=== PATIENT | male | born 1990 | race Two or more races ===

== ENCOUNTER 2024-03-09 08:48 | Emergency (ER) | payer OTHER ==
[~2024-03-09] VITALS: Ht 190.5 cm; Wt 86.5 kg
[2024-03-09] MEDS: IBUPROFEN 600 MG TAB PO ONE (10:51)
[2024-03-09 11:00] VITALS: BP 140/85; PULSE 102; RESP 18; O2SAT 96
[2024-03-09 11:53] LABS: Urine Bacteria None Seen /hpf (None Seen)
[2024-03-09 12:00] VITALS: TEMP 98
[2024-03-09 12:20] LABS: Urine Blood Negative /uL (Negative); Urine Clarity Clear (Clear); Urine Color Yellow (Yellow); Urine Mucus FEW (None Seen); Urine Protein, UAD Negative (Negative); Urine Specific Gravity 1.017 (1.001-1.035); Urine Urobilinogen Normal (Negative); Urine WBC 1 /hpf (0 - 3); Urine pH 5.5 (5.0-9.0)
[2024-03-09 12:50] LABS: COVID19 ANTIGEN SOFIA FIA POSITIVE (NEGATIVE)
[2024-03-09 12:51] LABS: Rapid Influenza A Negative (Negative); Rapid Influenza B Negative (Negative)
[2024-03-09] MEDS ORDERED: IBUP-1454 PO (12:52)
== END 2024-03-09 14:09 | disposition home or self-care (01) ==
LOC: ER 08:48
DX: U07.1 COVID-19 (principal)
CPT/HCPCS: 36415; 81001; 87426; 87804

== ENCOUNTER 2025-01-02 12:42 | Emergency (ER) | payer MEDICAID, OTHER ==
[~2025-01-02] VITALS: Ht 190.5 cm; Wt 105.5 kg
[~2025-01-02 12:42] MED LIST: IBUP-1454 PO
--- NOTE | 2025-01-02 13:08 | ED.PDOC ---
Eye-HPI HPI Comments 34 y.o male presents to the ED for a chief complaint of a sore throat x 3 days associated with throat swelling x 1 day. Patient reports difficulty swallowing due to the pain, states he has been taking Ibuprofen but has no relief and now noticed swelling is worse. Patient denies any SOB, discharge, fever, chills, or drooling. No medical history or allergies reported. Time Seen by MD: 12:55 Primary Care Provider: None Reviewed Notes: Nurses Notes, Medications, Allergies Allergies: Coded Allergies: NO KNOWN ALLERGIES (Unverified , 03/09/24) Home Meds Active Scripts Cephalexin (KEFLEX CAPSULE) 250 Mg Cp, 1 CAP PO QID, #28 CAP Prov:BRIAN FOREMAN MD 01/02/25 Ibuprofen (Ibuprofen) 600 Mg Tab, 1 TAB PO TID for 10 Days, #30 TAB 0 Refills Prov:BLACK VASQUEZ NP 03/09/24 Information Source: Patient Mode of Arrival: Ambulatory Timing: Days (3) Duration: Since onset Mouth: Tender, Swelling History of: None Associated signs and symptoms: Sore Throat Past Medical History PAST MEDICAL HISTORY: Denies Surgical History: Denies all surgeries Family History Family History: Reviewed,noncontributory to illness Social History Smoker: Non-Smoker Alcohol: Occasionally Drugs: Denies Drug Use Lives In: Home Constitutional: denies: chills, diaphoresis, fatigue, fever, malaise, sweats, weakness, others EENTM: reports: throat pain, throat swelling; denies: blurred vision, double vision, ear bleeding, ear discharge, ear drainage, ear pain, ear ringing, eye pain, eye redness, hearing loss, mouth pain, mouth swelling, nasal discharge, nose bleeding, nose congestion, nose pain, photophobia, tearing, voice changes, others Respiratory: denies: cough, hemoptysis, orthopnea, SOB at rest, shortness of breath, SOB with excertion, stridor, wheezing, others Cardiovascular: denies: chest pain, dizzy spells, diaphoresis, Dyspnea on exertion, edema, irregular heart beat, left arm pain, lightheadedness, palpitations, PND, syncope, others Gastrointestinal: denies: abdomen distended, abdominal pain, blood streaked bowels, constipated, diarrhea, dysphagia, difficulty swallowing, hematemesis, melena, nausea, poor appetite, poor fluid intake, rectal bleeding, rectal pain, vomiting, others Genitourinary: denies: burning, dysuria, flank pain, frequency, hematuria, incontinence, penile discharge, penile sore, pain, testicle pain, testicle swelling, urgency, others Neurological: denies: dizziness, fainting, headache, left sided numbness, left sided weakness, numbness, paresthesia, pre-existing deficit, right sided numbness, right sided weakness, seizure, speech problems, tingling, tremors, weakness, others Musculoskeletal: denies: back pain, gout, joint pain, joint swelling, muscle pain, muscle stiffness, neck pain, others Integumetry: denies: bruises, change in color, change in hair/nails, dryness, laceration, lesions, lumps, rash, wounds, others Allergic/Immunocompromised: denies: Difficulty Healing, Frequent Infections, Hives, Itching, others Hematologic/Lymphatic: denies: anemia, blood clots, easy bleeding, easy bruising, swollen glands, others Endocrine: denies: excessive hunger, excessive sweating, excessive thirst, excessive urination, flushing, intolerance to cold, intolerance to heat, unexplained weight gain, unexplained weight loss, others Psychiatric: denies: anxiety, bipolar disorder, depression, hopeless, panic disorder, schizophrenia, sleepless, suicidal, others All Other Systems: Reviewed and Negative Physical Exam General Appearance: Mild Distress HEENT: Pharyngeal Erythema, TMs Normal Neck: Full Range of Motion, Non-Tender, Normal, Normal Inspection Respiratory: Chest Non-Tender, Lungs Clear, No Accessory Muscle Use, No Respiratory Distress, Normal Breath Sounds Cardiovascular: No Edema, No JVD, No Murmur, No Gallop, Normal Peripheral Pulses, Regular Rate/Rhythm Breast Exam: Deferred Gastrointestinal: No Organomegaly, Non Tender, No Pulsatile Mass, Normal Bowel Sounds, Soft Genitalia: Deferred Pelvic: Deferred Rectal: Deferred Extremities: No calf tenderness, Normal capillary refill, Normal inspection, Normal range of motion, Non-tender, No pedal edema Musculoskeletal : Apperance: Normal Neurologic: Alert, core winder II-XII nml as Tested, No Motor Deficits, Normal Affect, Normal Mood, No Sensory Deficits Cerebellar Function: Normal Reflexes: Normal Skin: Dry, Normal Color, Warm Lymphatic: No Adenopathy Was a procedure done? Was a procedure done?: No EENT DIFF Eye: N/A Sore Throat: Christian's Angina, Peritonsillar Abscess, Peritonsillar Cellulitis, Streptococcal, Viral Pharyngitis X-Ray, Labs, Meds, VS Vital Signs Date Time Temp Pulse Resp B/P (MAP) Pulse Ox O2 Delivery O2 Flow Rate FiO2 01/02/25 14:15 100.5 98 16 143/85 (104) 98 100.5 01/02/25 14:15 98 16 98 Room Air 01/02/25 13:14 98.3 93 16 128/93 (105) 99 98.3 Current Medications Medications (Trade) Dose Ordered Sig/Lorne Route Start Time Stop Time Status Last Admin Sodium Chloride 1,000 ml @ 1,000 mls/hr Q1H ONCE IV 01/02/25 13:15 01/02/25 14:14 DC 01/02/25 13:15 The patient was given an IV Hep-Lock and was given normal saline at 1 L bolus The patient is being given Rocephin piggyback The patient's temperature was 100.5 so was given acetaminophen The patient is being discharged on Keflex The patient return the emergency department's condition worsens The patient understands and agrees with the management Time of 1ST Reevaluation: 14:00 Reevaluation 1ST: Unchanged Patient Education/Counseling: Diagnosis, Treatment, Prognosis, Need For Follow Up Family Education/Counseling: No Family Present Departure 1 Departure Time of Disposition: 14:44 Impression: Primary Impression: Acute pharyngitis Qualified Codes: J02.9 - Acute pharyngitis, unspecified Disposition: 01 HOME / SELF CARE / HOMELESS Condition: Fair e-Prescriptions Cephalexin (KEFLEX CAPSULE) 250 Mg Cp 1 CAP PO QID, #28 CAP Prov: BRIAN FOREMAN MD 01/02/25 Discharged With: Self Critical Care Note Critical Care Time?: No Stability Stability form required: No I personally scribed for BRIAN FOREMAN MD ([email or web address]) on 01/02/25 at 13:08. Electronically submitted by Araceli Rivas ([facility]). BRIAN FOREMAN MD Jan 02, 2025 13:08
[2025-01-02] MEDS: SODIUM CHLORIDE 0.9% 1,000 ML IV ONE (13:15)
[2025-01-02 14:15] VITALS: BP 143/85; PULSE 98; RESP 16; TEMP 100.5; O2SAT 98
[2025-01-02] MEDS: ACETAMINOPHEN 325 MG TAB PO ONE (14:41)
[2025-01-02] MEDS ORDERED: CEPH250C PO (14:43)
[2025-01-02] MEDS: cefTRIAXone 1GM/50ML D5W 50 ML IV ONE (14:47)
== END 2025-01-02 16:01 | disposition home or self-care (01) ==
LOC: ER 12:46
DX: J02.9 Acute pharyngitis, unspecified (principal); F10.90 Alcohol use, unspecified, uncomplicated; Z79.899 Other long term (current) drug therapy; Y90.9 Presence of alcohol in blood, level not specified
CPT/HCPCS: 96361; 96365; 99284; J0696; J7030